=== PATIENT | female | born 1995 | race African-American/Black ===

== ENCOUNTER 2018-05-11 23:37 | Emergency (ER) | payer MEDICAID ==
[~2018-05-11] VITALS: Ht 177.8 cm; Wt 87.0 kg
[2018-05-11 23:43] VITALS: BP 137/81
== END 2018-05-12 03:12 | disposition left against medical advice (07) ==
LOC: ER 23:37
DX: Z53.21 Procedure and treatment not carried out due to patient leaving prior to being seen by health care provider (principal)